=== PATIENT | female | born 1990 ===

== ENCOUNTER 2018-07-24 22:34 | Emergency (ER) | payer MEDICAID ==
[2018-07-24 22:47] VITALS: BP 108/73; PULSE 86; RESP 20; TEMP 98.5; O2SAT 99
--- NOTE | 2018-07-25 00:07 | C.PDOC ---
History Of Present Illness 27-year-old female presents to the ED for evaluation of a headache which began this morning. Patient describes her headache as mainly a pressure-like sensation behind her eyes and also complains of soreness to her upper back. Patient has not taken any medicine for her symptoms. Patient denies experiencing a similar headache in the past. Patient denies fever, chills, neck pain/stiffness, or severe headache. Time Seen by Provider: 07/24/18 23:02 Chief Complaint (Nursing): Headache History Per: Patient History/Exam Limitations: no limitations Onset/Duration Of Symptoms: Hrs Current Symptoms Are (Timing): Still Present Quality: Aching, Pressure Preceeding Symptoms: denies: Known Migraine Symptoms Associated Symptoms: denies: Nausea, Vomiting Additional History Per: Patient Past Medical History Reviewed: Historical Data, Nursing Documentation, Vital Signs Vital Signs: Last Vital Signs Temp 98.5 F 07/24/18 22:40 Pulse 86 07/24/18 22:40 Resp 20 07/24/18 22:40 BP 108/73 07/24/18 22:40 Pulse Ox 99 07/24/18 22:40 - Medical History PMH: No Chronic Diseases Surgical History: No Surg Hx Family History: States: Unknown Family Hx - Social History Hx Alcohol Use: No Hx Substance Use: No - Immunization History Hx Tetanus Toxoid Vaccination: No Hx Influenza Vaccination: No Hx Pneumococcal Vaccination: No Review Of Systems Constitutional: Negative for: Fever, Chills, Weakness Eyes: Negative for: Redness, Other (scleral icterus ) ENT: Negative for: Mouth Swelling Cardiovascular: Negative for: Chest Pain Respiratory: Negative for: Cough, Shortness of Breath Gastrointestinal: Negative for: Nausea, Vomiting Musculoskeletal: Positive for: Back Pain (soreness ). Negative for: Neck Pain, Other (neck stiffness ) Neurological: Positive for: Headache. Negative for: Weakness, Numbness, Dizziness Physical Exam - Physical Exam Appears: Well, Non-toxic, No Acute Distress Skin: Normal Color, Warm, No Rash Head: Atraumatic, Normacephalic Eye(s): bilateral: Normal Inspection (no scleral icterus ), PERRL, EOMI Ear(s): Bilateral: Normal (no drainage ) Nose: Normal Oral Mucosa: Moist Throat: Normal (no swelling or injection ), No Exudate, Other (airway patent ) Neck: Normal ROM, Supple Chest: Symmetrical Cardiovascular: Rhythm Regular Respiratory: No Accessory Muscle Use, Other (normal inspiratory effort ) Back: No Vertebral Tenderness, Other (muscle tenderness to upper back, ambulating with steady upright gait ) Extremity: Normal ROM Extremity: Bilateral: Atraumatic Neurological/Psych: Oriented x3, Normal Cranial Nerves (grossly intact ) ED Course And Treatment O2 Sat by Pulse Oximetry: 99 (on RA) Pulse Ox Interpretation: Normal Medical Decision Making Medical Decision Making: Flexeril PO, Motrin PO, and Reglan IM given. patient reports resolution of her headache symptom and moderate improvement of the back soreness. she states she is ready to be discharged. Disposition Counseled Patient/Family Regarding: Diagnosis, Need For Followup, Rx Given - Disposition Referrals: [facility] [Outside] Disposition: HOME/ ROUTINE Disposition Time: 00:06 Condition: IMPROVED Prescriptions: Cyclobenzaprine [Flexeril] 10 mg PO TID #15 tab Ibuprofen [Motrin Tab] 600 mg PO TID #21 tab Instructions: Muscle and Bone Pain (DC), Headache, Adult (DC) Forms: General Discharge Instructions, [employer] (Thai), Work Excuse - Clinical Impression Clinical Impression: Headache, Muscle soreness - PA / FUNERAL DIRECTOR'S ASSISTANT / Resident Statement MD/DO has reviewed & agrees with the documentation as recorded. - Scribe Statement The provider has reviewed the documentation as recorded by the Scribe (Diamond Mojica) All medical record entries made by the Scribe were at my direction and personally dictated by me. I have reviewed the chart and agree that the record accurately reflects my personal performance of the history, physical exam, medical decision making, and the department course for this patient. I have also personally directed, reviewed, and agree with the discharge instructions and disposition.
== END 2018-07-25 00:15 | disposition home or self-care (01) ==
LOC: C.ER 22:34
DX: R51 Headache (principal); M79.10 Myalgia, unspecified site
CPT/HCPCS: 81025; 96372; 99284; J2765